=== PATIENT | male | born 1950 | race Caucasian/White ===

== ENCOUNTER → 2017-12-28 08:57 | Outpatient (CLI) | payer MEDICARE, OTHER, SELFPAY ==
[2017-12-28 09:54] LABS: Add Manual Diff / Slide Review NO; Eosinophils Percent Auto 9.5 % (2-4); Hematocrit 38.6 % (41-53); Lymphocytes Percent Auto 31.5 % (25-40); Mean Corpuscular HGB Conc 33.8 % (30-36); Mean Corpuscular Hemoglobin 31.5 PG (26-34); Mean Corpuscular Volume 93.3 fL (80-100); Monocytes Percent Auto 7.3 % (3-14); Neutrophils Absolute Auto 2400 /uL (3000-5900); Neutrophils Percent Auto 50.7 % (50-75); Platelet Count 240 X10^3/uL (150-400); Red Blood Cell Count 4.14 X10^6/uL (4.5-5.9); Red Cell Distribution Width 13.3 % (11.6-14.8); White Blood Cell Count 4.6 X10^3/uL (4.5-11.0)
[2017-12-28 09:56] LABS: HEMOLYSIS < 15 (0-50)
[2017-12-28 10:03] LABS: Alanine Aminotransferase 28 IU/L (21-72); Albumin 4.1 g/dL (3.5-5.0); Albumin Globulin Ratio 1.7 (1.0-2.8); Alkaline Phosphatase 43 U/L (38-126); Aspartate Aminotransferase 26 IU/L (17-59); Bilirubin Total 0.2 mg/dL (0.2-1.3); Blood Urea Nitrogen 19 mg/dL (9-20); Calcium 9.1 mg/dL (8.4-10.2); Carbon Dioxide 28 mmol/L (22-32); Chloride 106 mmol/L (98-107); Cholesterol 161 mg/dL (140-199); Estimated Glomerular Filt Rate > 60.0 mL/min (>60); Globulin 2.4 g/dL (1.7-4.1); Glucose 95 mg/dL (80-110); HDL Cholesterol 40 mg/dL (40-60); LDL Cholesterol Calculated 95 mg/dL (<100); Potassium 4.7 mmol/L (3.4-5.1); Sodium 141 mmol/L (137-145); Total Protein 6.5 g/dL (6.3-8.2); Triglycerides 130 mg/dL (35-150)
[2017-12-28 10:19] LABS: Free T3, Triiodothyronine Free 5.26 pg/mL (2.77-5.27); Free T4, Direct Thyroxine 1.39 ng/dL (0.78-2.19)
[2017-12-28 11:06] LABS: Hep C Virus Ab w/Reflex Quant NEGATIVE s/c (NEGATIVE)
[2017-12-28 11:34] LABS: Prostate Specific Antigen Scrn 1.64 ng/mL (0.1-4.0)
== END ==
PROVIDERS: PCP Internal Medicine; Visit Provider Internal Medicine
DX: E78.00 Pure hypercholesterolemia, unspecified (principal); G43.701 Chronic migraine without aura, not intractable, with status migrainosus; E03.9 Hypothyroidism, unspecified; Z12.5 Encounter for screening for malignant neoplasm of prostate
CPT/HCPCS: 36415; 80053; 80061; 84439; 84443; 84481; 85025; 86803; G0103

== ENCOUNTER → 2022-01-23 14:00 | Outpatient (CLI) | payer MEDICARE, OTHER, SELFPAY ==
--- NOTE | 2022-01-23 | DI.RAD.S_ITS ---
PROCEDURE: XR KNEE LT 3V INDICATIONS: stiffness of left knee, left knee pain TECHNIQUE: 3 views of the knee were acquired. COMPARISON: None. FINDINGS: Bones: No fractures or dislocations. No suspicious bony lesions. Mild tricompartmental osteoarthritic degenerative change. Soft tissues: No joint effusion. No suspicious soft tissue calcifications. IMPRESSION: Mild left knee tricompartmental osteoarthritis. No fracture. No acute osseous lesion. If symptoms and/or clinical suspicion for pathology persists, further assessment with repeat radiographs (7-10 days) or advanced imaging (e.g. CT, MRI or bone scan) should be considered. Dictated by: Maria Esther Kramer MD, PhD on 01/23/2022 at 15:15 Approved by: Maria Esther Kramer MD, PhD on 01/23/2022 at 15:15
== END ==
PROVIDERS: Family Provider Internal Medicine; PCP Internal Medicine; Referring Provider Internal Medicine; Visit Provider Internal Medicine
DX: M17.12 Unilateral primary osteoarthritis, left knee (principal); M25.662 Stiffness of left knee, not elsewhere classified
CPT/HCPCS: 73562

== ENCOUNTER 2023-08-21 07:21 | Day surgery (SDC) | payer MEDICARE, SELFPAY ==
--- NOTE | 2023-08-21 | PATH_ITS ---
[facility] Accession Number: [id number] No. of containers..03 Tissue . 01 Material submitted: . PART A: colon - HEPATIC POLYP / BIOPSY PART B: colon - SPLENIC POLYP PART C: rectum - RECTAL POLYP . 01 Diagnosis: A. COLON, HEPATIC POLYP, BIOPSY: Tubular adenoma. . B. COLON, SPLENIC POLYP, BIOPSY: Tubular adenoma. . C. COLON, RECTAL POLYP, BIOPSY: Tubular adenoma. MRV 08/23/2023 1303 Local . 01 Electronically signed: . Servando Jovel MD, Pathologist NPI- [id number] . 01 Gross description: . A. Received in formalin with two patient identifiers and hepatic polyp, are multiple [place] soft tissue fragments aggregating to 1.3 x 0.5 x 0.2 cm. Filtered and submitted in A1. B. Received in formalin with two patient identifiers and splenic polyp, is a single [place] soft tissue fragment, 0.7 cm in greatest dimension. Submitted in B1. C. Received in formalin with two patient identifiers and rectal polyp, are two [place] soft tissue fragments, 0.3 to 0.7 cm in greatest dimension. Submitted in C1. ([id number]) /MRV 08/22/2023 1604 Local . 01 Pathologist provided ICD-10: D12.6 . 01 CPT . 741801, 750148, [id number] Specimen Comment: A courtesy copy of this report has been sent to [phone] Performed at: [address] [address] [address], [place], [place] [id number] MD Mandeep Ash MD Phone: [phone]
[2023-08-21 07:58] VITALS: BP 128/81; PULSE 68; RESP 16; TEMP 36.3; O2SAT 97
[2023-08-21] MEDS: LACTATED RINGERS 1,000 ML 42 ML IV (08:00)
--- NOTE | 2023-08-21 08:24 | PM.OP.COLON ---
Operative Date/Time/Diagnoses Date of procedure: 08/21/23 Pre-op diagnosis: See indication and findings Procedure & Clinicians Study performed: Colonoscopy Indications: Personal history of colon polyps and family history of colon cancer in his brother. Last colonoscopy approximately 7 years ago Surgeon: Gretchen Edwards Procedure Notes Procedure in detail: After informed consent was obtained the patient was placed in left lateral decubitus position. The video colonoscope was introduced the rectum slowly advanced cecum. Preparation was good. On slow withdrawal mucosa was carefully examined. The scope was removed. The patient tolerated procedure well. Blood loss none Complications none Sedation mac Findings 1. 8 mm sessile polyp in the hepatic flexure cold snared and removed 2. 4 mm polyp in the same general vicinity Jumbo biopsy removed completely and placed in same bottle as above 3. 8 mm polyp at 60 cm splenic flexure snared and removed completely 4. 1.2 cm sessile polyp cold snared and removed completely 5. Otherwise negative colonoscopy to cecum Will be in touch regarding the pathology but given the large number of polyps and family history of colon cancer in his brother, he should have follow-up colonoscopy in 3 years
--- NOTE | 2023-08-21 08:33 | PM.HP.1 ---
History of Present Illness History of Present Illness Date Patient Seen: 08/21/23 Chief complaint: Colonoscopy Narrative: Family history of colon cancer in a brother and personal history of colon polyps. Last colonoscopy possibly 7 years ago [facility] Medical History (Updated 08/21/23 @ 07:40 by Jo Ann Mendoza RN) Hypercholesteremia Hypothyroid Migraine Social History Smoking Status: Never smoker alcohol intake: never Meds Home Medications and Allergies Home Medications Medication Instructions Recorded Confirmed Type fenofibrate 160 mg tablet ##0 01/18/16 History levothyroxine 112 mcg tablet ##0 01/18/16 History nortriptyline 25 mg capsule ##0 01/18/16 History propranolol 20 mg tablet ##0 01/18/16 History sodium,potassium,mag sulfates 17.5 See Rx Instructions PO .COMPLEX 07/11/23 Rx gram-3.13 gram-1.6 gram oral soln #354 mL (Suprep Bowel Prep Kit) Allergies Allergy/AdvReac Type Severity Reaction Status Date / Time No Known Drug Allergies Allergy Verified 08/21/23 07:40 Exam Vital Signs (past 8 hours): - 08/21/23 07:58 Temperature 97.4 F L Pulse Rate 68 Respiratory Rate 16 Blood Pressure 128/81 Pulse Oximetry 97 Oxygen Delivery Method Room Air Oxygen Delivery Method Room Air Narrative Exam Narrative: Oropharynx free of lesions Chest clear to auscultation percussion Cardiac exam reveals no S3 or murmur Assessment & Plan Assessment & Plan narrative: Family history of colon cancer and personal history of colon polyps need for follow-up colonoscopy. Risks, benefits, alternatives have been explained. Time-Based Coding :: [TOTAL MINUTES] spent with patient and on the chart (including review of chart, obtaining history, exam, reviewing outside data, placing orders, documenting exam and treatment plan, and counseling patient) on [DATE].
[2023-08-21 09:02] VITALS: BP 99/70; PULSE 63; RESP 6; TEMP 36.3; O2SAT 94
--- NOTE | 2023-08-21 09:06 | SUR.PHASEI ---
0902 - Received to PACU after MAC colonoscopy. Report from Dr Bearden and Stephania RN.
[2023-08-21 09:07] VITALS: BP 102/69; PULSE 55; RESP 14; O2SAT 95
[2023-08-21 09:12] VITALS: BP 102/68; PULSE 59; RESP 16; O2SAT 94
[2023-08-21 09:17] VITALS: BP 105/68; PULSE 50; RESP 14; O2SAT 95
[2023-08-21 09:20] VITALS: BP 102/73; PULSE 51; RESP 16; O2SAT 94
== END 2023-08-21 09:25 | disposition home or self-care (01) ==
PROVIDERS: Family Provider Internal Medicine; PCP Physician Assistant; Referring Provider Internal Medicine Gastroenterology; Visit Provider Internal Medicine Gastroenterology
PROC: 0DJD8ZZ Inspection of Lower Intestinal Tract, Via Natural or Artificial Opening Endoscopic (ICD-10-PCS; CPT 45378; principal; 2023-08-21 08:30)
DX: Z12.11 Encounter for screening for malignant neoplasm of colon (principal); Z86.010 Personal history of colon polyps; Z80.0 Family history of malignant neoplasm of digestive organs; D12.3 Benign neoplasm of transverse colon; D12.4 Benign neoplasm of descending colon; D12.8 Benign neoplasm of rectum
CPT/HCPCS: 45385; 45380; J2704

== ENCOUNTER → 2024-04-22 11:20 | Outpatient (CLI) | payer MEDICARE, SELFPAY ==
[2024-04-22 12:18] LABS: Hemoglobin A1C% w Est Avg Glu 5.4 % (4.0-6.0)
[2024-04-22 12:41] LABS: Free T4, Direct Thyroxine 1.66 ng/dL (0.78-2.19)
[2024-04-22 12:55] LABS: Thyroid Stimulating Hormone 3.53 uIU/mL (0.47-4.68)
== END ==
PROVIDERS: Family Provider Internal Medicine; PCP Physician Assistant; Referring Provider Internal Medicine Cardiovascular Disease; Visit Provider Internal Medicine Cardiovascular Disease
DX: R73.03 Prediabetes (principal); E78.5 Hyperlipidemia, unspecified
CPT/HCPCS: 36415; 83036; 84439; 84443

== ENCOUNTER → 2024-05-11 12:40 | Outpatient (CLI) | payer MEDICARE, SELFPAY ==
--- NOTE | 2024-05-11 12:42 | DI.ECHO.S_ITS ---
[facility] +---------+ [facility] : : [address] : : [place] : : [id number] : : Phone: [phone] Echocardiogram Report + + :Name: JAVIER CUELLAR Study Date: 05/11/2024 Height: 75 in : :Hospital ReadingLocation: Weight: 200 lb : : Gender: Male BSA: 2.2 m2 : :: 1950 Age: 73 yrs BP: 122/75 mmHg: :Reason For Study: CARDIAC ARRHYTHMIA : :Ordering Physician: HUSSEIN, : :CAROLINE Grullon Performed By: Darinel Bella : :Referring: CAROLINE MARTÍNEZ : + + Interpretation Summary The ejection fraction is estimated to be 55-60%. Diastolic parameters suggest probable normal left ventricular diastolic function and normal filling pressures. The right ventricle is normal in size and function. No valvular abnormalities. Pulmonary artery pressures cannot be estimated because of the lack of a measurable TR jet velocity but the IVC suggests a CVP of around 3 mmHg. The ascending aorta is mildly enlarged, 4.0 cm. Procedure: A two-dimensional transthoracic echocardiogram with color flow and Doppler was performed. The study quality was technically good. There is no prior echocardiogram noted for this patient. The patient was in normal sinus rhythm during the exam. Left Ventricle: The left ventricle is normal in size and wall thickness. There is no ventricular septal defect visualized. The ejection fraction is estimated to be 55-60%. There are no focal wall motion abnormalities. Diastolic parameters suggest probable normal left ventricular diastolic function and normal filling pressures. Right Ventricle: The right ventricle is normal in size and function. Atria: The left atrial size is normal. Right atrial size is normal. There is no Doppler evidence for an interatrial shunt. Mitral Valve: The mitral valve leaflets appear normal. There is no evidence of stenosis, fluttering, or prolapse. There is no mitral regurgitation noted. Aortic Valve: The aortic valve is trileaflet. The aortic valve opens well. There is no aortic valve stenosis. No aortic regurgitation is present. Tricuspid Valve: The tricuspid valve leaflets are thin and pliable. There is a trace or physiologic amount of tricuspid regurgitation. Pulmonary artery pressures cannot be estimated because of the lack of a measurable TR jet velocity but the IVC suggests a CVP of around 3 mmHg. Pulmonic Valve: The pulmonic valve leaflets are thin and pliable; valve motion is normal. There is trace pulmonic regurgitation. Great Vessels: The aortic root is mildly dilated. The ascending aorta is mildly enlarged. The pulmonary artery is normal size. The IVC is of normal diameter and collapses greater than 50% with a sniff. This suggests a low right atrial pressure of 3 mm Hg. Pericardium/ Pleura There is no pericardial effusion. There is no pleural effusion. MMode/2D Measurements & Calculations LVIDd: 4.3 cm LVOT diam: 2.5 cm LVIDs: 2.8 cm Ao root diam: 3.9 cm FS: 34.7 % asc Aorta Diam: 4.0 cm EPSS: 0.65 cm IVSd: 1.1 cm LVPWd: 1.2 cm LV villar. diameter/BSA (cm/m^2): 1.9 LV sys. diameter/BSA (cm/m^2): 1.3 LA A2 area: 22.2 cm2 RA long axis: 5.2 cm LA A4 area: 15.9 cm2 RA area: 17.0 cm2 LA length (vol): 5.3 cm RA vol: 47.9 ml LA vol: 56.4 ml RA : 21.8 ml/m2 LA vol index: 25.7 ml/m2 IVC diam: 1.7 cm RVD1 (basal): 4.0 cm RVD2 (mid): 3.6 cm TAPSE: 2.5 cm Doppler Measurements & Calculations Ao V2 max: 108.4 cm/sec LVOT Max Mike: 94.3 cm/sec Ao V2 mean: 77.4 cm/sec LV V1 max P.6 mmHg Ao max P.7 mmHg LV V1 VTI: 23.4 cm Ao mean P.7 mmHg PALLAVI(I,D): 4.6 cm2 Ao V2 VTI: 25.3 cm PALLAVI(V,D): 4.3 cm2 sev ratio: 0.92 PALLAVI indexed to BSA (cm^2/m^2): 2.1 MV E max mike: 48.9 cm/sec TR max mike: 251.0 cm/sec MV A max mike: 51.0 cm/sec TR max P.2 mmHg MV E/A: 0.96 PA V2 max: 76.6 cm/sec Med Peak E' Mike: 5.8 cm/sec PA V2 mean: 58.7 cm/sec E/E' med: 8.4 PA mean P.5 mmHg Lat Peak E' Mike: 10.4 cm/sec PA pr(Accel): 10.5 mmHg E/E' lat: 4.7 E/e' average: 6.5 MV dec time: 0.28 sec SV(LVOT): 115.3 ml Reading Physician:02:23 PM
== END ==
PROVIDERS: Family Provider Internal Medicine; PCP Physician Assistant; Referring Provider Internal Medicine Cardiovascular Disease; Visit Provider Internal Medicine Cardiovascular Disease
DX: I49.1 Atrial premature depolarization (principal); I49.9 Cardiac arrhythmia, unspecified; I77.810 Thoracic aortic ectasia; I77.89 Other specified disorders of arteries and arterioles
CPT/HCPCS: 93306